=== PATIENT | male | born 1935 | race Caucasian/White ===

== ENCOUNTER 2020-03-03 16:52 | Emergency (ER) | payer MEDICARE, OTHER ==
[2020-03-03 18:51] LABS: HEMOGLOBIN 16.2 gm/dl (14.0-17.5); RED BLOOD COUNT 5.52 M/UL (4.20-5.50); WHITE BLOOD COUNT 5.4 K/UL (4.5-11.0)
[2020-03-03 19:11] LABS: BUN/CREATININE RATIO 28 (0-10)
[2020-03-03] MEDS ORDERED: DECADRON6 MG PO (21:28)
[2020-03-03] MEDS ORDERED: DOXYCYCLINE MO100 MG PO (21:28)
[2020-03-03] MEDS ORDERED: VENTOLIN HFA 66.7 GM INH (21:28)
== END 2020-03-04 00:30 | disposition home or self-care (01) ==
LOC: ER1 16:52
PROVIDERS: Physician Assistant
DX: U07.1 COVID-19 (principal); J12.82 Pneumonia due to coronavirus disease 2019; I48.91 Unspecified atrial fibrillation
CPT/HCPCS: 71045; 80053; 82550; 82553; 83874; 83880; 84484; 85025; 85610; 85730; 93005; 99285; M0239

== ENCOUNTER → 2020-05-24 | Outpatient (CLI) | payer MEDICARE, OTHER ==
[~2020-05-24] MED LIST: DECADRON6 MG PO; DOXYCYCLINE MO100 MG PO; VENTOLIN HFA 66.7 GM INH
== END ==
LOC: ECHO 11:09
DX: R53.83 Other fatigue (principal); I08.3 Combined rheumatic disorders of mitral, aortic and tricuspid valves; I27.20 Pulmonary hypertension, unspecified

== ENCOUNTER → 2020-08-10 | Outpatient (CLI) | payer MEDICARE, OTHER | LOC: EXRD 13:42 | DX: M06.4 Inflammatory polyarthropathy (principal); M18.12 Unilateral primary osteoarthritis of first carpometacarpal joint, left hand; M18.11 Unilateral primary osteoarthritis of first carpometacarpal joint, right hand | CPT/HCPCS: 73130 ==

== ENCOUNTER 2020-10-24 10:13 | Inpatient (IN) | payer MEDICARE, OTHER ==
[~2020-10-24] VITALS: Ht 185.4 cm; Wt 74.0 kg
[~2020-10-24 10:13] MED LIST changes: +DOXYCYCLINE HY100 M2 PO
[2020-10-24 12:16] LABS: HEMOGLOBIN 15.6 gm/dl (14.0-17.5); RED BLOOD COUNT 5.15 M/UL (4.20-5.50); WHITE BLOOD COUNT 10.5 K/UL (4.5-11.0)
[2020-10-24 12:40] LABS: BUN/CREATININE RATIO 24 (0-10)
[2020-10-24] MEDS ORDERED: DEXAMETHASONE4 MG PO (17:27)
[2020-10-24] MEDS ORDERED: PROAIR DIGIHAL90 MCG INH (17:29)
[2020-10-24] MEDS ORDERED: VITAMIN D325 MCG PO (17:30)
[2020-10-24] MEDS ORDERED: METOPROLOL SUCC50 MG PO (17:31)
[2020-10-24] MEDS ORDERED: PRADAXA 150 MG150 MG PO (17:31)
[2020-10-24] MEDS ORDERED: DIGOXIN125 MCG PO (17:32)
[2020-10-24] MEDS ORDERED: CALCIUM 600 +1 EA12 PO (17:33)
[2020-10-24] MEDS ORDERED: VITAMIN D350 MC3 PO (17:34)
[2020-10-25 05:12] LABS: HEMOGLOBIN 13.9 gm/dl (14.0-17.5); RED BLOOD COUNT 4.64 M/UL (4.20-5.50); WHITE BLOOD COUNT 10.5 K/UL (4.5-11.0)
[2020-10-25 05:24] LABS: BUN/CREATININE RATIO 25 (0-10)
--- NOTE | 2020-10-25 10:28 | NUR ---
reported to kerrie max that received call from telemetry that patient pulse ox goes to 70"s with any activity.
--- NOTE | 2020-10-25 12:32 | NUR ---
reported episode to dr. nye received calls from telemetry r/t patients increase heart rate. he acknowledged.
[2020-10-25 13:59] LABS: BORDETELLA PARAPERTUSSIS Not Detected (Not Detectd); BORDETELLA PERTUSSIS Not Detected (Not Detectd); CHLAMYDIA PNEUMONIAE Not Detected (Not Detectd); CORONAVIRUS HKU1 Not Detected (Not Detectd); CORONAVIRUS NL63 Not Detected (Not Detectd); CORONAVIRUS OC43 Not Detected (Not Detectd); CORONOAVIRUS 229E Not Detected (Not Detectd); HUMAN METAPNEUMOVIRUS Not Detected (Not Detectd); HUMAN RHINOVIRUS/ENTEROVIRUS Not Detected (Not Detectd); INFLUENZA A Not Detected (Not Detectd); INFLUENZA B Not Detected (Not Detectd); MYCOPLASMA PNEUMONIAE Not Detected (Not Detectd); PARAINFLUENZA VIRUS 1 Not Detected (Not Detectd); PARAINFLUENZA VIRUS 2 Not Detected (Not Detectd); PARAINFLUENZA VIRUS 3 Not Detected (Not Detectd); PARAINFLUENZA VIRUS 4 Not Detected (Not Detectd); RESPIRATORY SYNCYTIAL VIRUS Not Detected (Not Detectd)
[2020-10-25 15:23] LABS: SARS-CoV-2 NOT DETECTED (Not Detectd)
--- NOTE | 2020-10-25 16:00 | NUR ---
FREQUENT ADJUSTMENT OF PATIENT OXYGENATION PER RT R/T PULSE OX GOES DOWN TO 70'S RANGE. INFORMED DR. BERNAL AND ORDER RECEIVED BY RT. PATIENT WILL BE ON BIPAP/
--- NOTE | 2020-10-25 22:47 | NUR ---
ATTEMPTED TO CALL REPORT X2 TIMES AT THIS POINT. BED IS CLEAN ON BOARD AND WHEN I GET TRANSFERED THROUGH TO THE NURSES STATION NO ANSWER EITHER TIME.
--- NOTE | 2020-10-25 23:08 | NUR ---
attempted report and was informed that recieveing nurse has patient that is very ill at this time and has hospitalist and house in the room with patient. informed the nurse who took the phone call that the nurse can call me back at her earliest time when she is ready. patient is resting in bed with no changes in stable codition at this time. will be awaiting word from pcu nurse when she is able to take report
--- NOTE | 2020-10-26 00:51 | NUR ---
REPORT CALLED TO [facility] ON PCU
[2020-10-26 03:51] LABS: HEMOGLOBIN 14.9 gm/dl (14.0-17.5); RED BLOOD COUNT 5.08 M/UL (4.20-5.50); WHITE BLOOD COUNT 12.6 K/UL (4.5-11.0)
[2020-10-26 04:11] LABS: BUN/CREATININE RATIO 23 (0-10)
--- NOTE | 2020-10-26 16:48 | NUR ---
PATIENT DECLINE. RESPIRATIONS IN THE 50'S TO MAINTAIN PROPER O2 SAT. INFORM MD RESPIRATORY FEELS PATIENT IS GOING TO "GIVE OUT". FAMILY AWARE OF PATIENT POSSIBILITY OF ICU TRANSFER. PATIENT IS A FULL CODE VERIFIED THIS AM PER FAMILY MEMBERS. REPORT GIVEN TO SANDRITA AT APPROXIMATELY [id number]. MD PETERSON IS AWAITING PATIENT FOR INTUBATION. FAMILY IS AWARE.
[2020-10-27 04:55] LABS: HEMOGLOBIN 14.1 gm/dl (14.0-17.5); RED BLOOD COUNT 4.74 M/UL (4.20-5.50)
[2020-10-27 04:56] LABS: WHITE BLOOD COUNT 18.1 K/UL (4.5-11.0)
[2020-10-27 05:14] LABS: BUN/CREATININE RATIO 25 (0-10)
[2020-10-27 15:51] LABS: BODY FLUID SOURCE BRONCHIAL LAVAGE
[2020-10-28 05:31] LABS: HEMOGLOBIN 13.3 gm/dl (14.0-17.5); RED BLOOD COUNT 4.62 M/UL (4.20-5.50)
[2020-10-28 05:52] LABS: BUN/CREATININE RATIO 33 (0-10)
[2020-10-29 04:59] LABS: HEMOGLOBIN 13.1 gm/dl (14.0-17.5); RED BLOOD COUNT 4.68 M/UL (4.20-5.50)
[2020-10-29 05:17] LABS: BUN/CREATININE RATIO 42 (0-10)
[2020-10-29 05:20] LABS: WHITE BLOOD COUNT 13.6 K/UL (4.5-11.0)
[2020-10-30 05:47] LABS: HEMOGLOBIN 12.7 gm/dl (14.0-17.5); RED BLOOD COUNT 4.53 M/UL (4.20-5.50)
[2020-10-30 05:49] LABS: WHITE BLOOD COUNT 17.2 K/UL (4.5-11.0)
[2020-10-30 06:10] LABS: BUN/CREATININE RATIO 57 (0-10)
[2020-10-31 05:26] LABS: HEMOGLOBIN 13.5 gm/dl (14.0-17.5); RED BLOOD COUNT 4.74 M/UL (4.20-5.50); WHITE BLOOD COUNT 13.7 K/UL (4.5-11.0)
[2020-10-31 05:52] LABS: BUN/CREATININE RATIO 38 (0-10)
[2020-11-01 09:06] LABS: WHITE BLOOD COUNT 14.2 K/UL (4.5-11.0)
[2020-11-01 09:08] LABS: RED BLOOD COUNT 5.73 M/UL (4.20-5.50)
[2020-11-01 09:30] LABS: BUN/CREATININE RATIO 30 (0-10)
[2020-11-02 06:35] LABS: HEMOGLOBIN 15.2 gm/dl (14.0-17.5); RED BLOOD COUNT 5.42 M/UL (4.20-5.50); WHITE BLOOD COUNT 13.1 K/UL (4.5-11.0)
[2020-11-02 06:43] LABS: BUN/CREATININE RATIO 34 (0-10)
--- NOTE | 2020-11-02 10:38 | NUR ---
CARDIOLOGY NOTIFIED THAT PT HAD 4 BEAT RUN OF V-TACH AND FEW NON SUSTAINED V TACH EPISODES PER TELEMETRY THIS AM
[2020-11-03 04:42] LABS: HEMOGLOBIN 15.3 gm/dl (14.0-17.5); RED BLOOD COUNT 5.42 M/UL (4.20-5.50)
[2020-11-03 05:06] LABS: BUN/CREATININE RATIO 31 (0-10)
[2020-11-03 05:20] LABS: WHITE BLOOD COUNT 19.5 K/UL (4.5-11.0)
[2020-11-04 07:37] LABS: HEMOGLOBIN 15.7 gm/dl (14.0-17.5); RED BLOOD COUNT 5.57 M/UL (4.20-5.50)
[2020-11-04 07:50] LABS: WHITE BLOOD COUNT 13.5 K/UL (4.5-11.0)
[2020-11-04 08:04] LABS: BUN/CREATININE RATIO 34 (0-10)
[2020-11-04] MEDS ORDERED: LOPRESSOR 25 MG25 MG PO (09:56)
[2020-11-04] MEDS ORDERED: ELIQUIS 5 MG TAB5 MG PO (09:56)
[2020-11-04] MEDS ORDERED: LANTUS INS100 UTS/M1 SQ (09:56)
[2020-11-04] MEDS ORDERED: CEFUROXIME250 MG PO (09:56)
[2020-11-04] MEDS ORDERED: IPRAT-ALBUT 0.5-3 ML NEB (09:56)
== END 2020-11-04 18:27 | DRG 208 ==
LOC: ER1 10:13 → PROG CARE 15:44 → M/S 15:44 → PROG CARE 10-26 00:49 → CCU 10-26 17:12 → M/S 10-31 21:16
PROVIDERS: Internal Medicine; Internal Medicine Pulmonary Disease; Physician Assistant; ADMIT Internal Medicine
PROC: 3E033XZ Introduction of Vasopressor into Peripheral Vein, Percutaneous Approach (ICD-10-PCS; 2020-10-24)
PROC: 5A09457 Assistance with Respiratory Ventilation, 24-96 Consecutive Hours, Continuous Positive Airway Pressure (ICD-10-PCS; principal; 2020-10-26)
PROC: 0BH17EZ Insertion of Endotracheal Airway into Trachea, Via Natural or Artificial Opening (ICD-10-PCS; 2020-10-26)
PROC: 5A1945Z Respiratory Ventilation, 24-96 Consecutive Hours (ICD-10-PCS; 2020-10-26)
PROC: 02HV33Z Insertion of Infusion Device into Superior Vena Cava, Percutaneous Approach (ICD-10-PCS; 2020-10-26)
PROC: B548ZZA Ultrasonography of Superior Vena Cava, Guidance (ICD-10-PCS; 2020-10-26)
PROC: 0B9D8ZX Drainage of Right Middle Lung Lobe, Via Natural or Artificial Opening Endoscopic, Diagnostic (ICD-10-PCS; 2020-10-27)
DX: J15.6 Pneumonia due to other Gram-negative bacteria (principal); A41.50 Gram-negative sepsis, unspecified; G93.41 Metabolic encephalopathy; Z20.822 Contact with and (suspected) exposure to COVID-19; R65.21 Severe sepsis with septic shock; J80 Acute respiratory distress syndrome; R57.8 Other shock; T78.2XXA Anaphylactic shock, unspecified, initial encounter; I48.20 Chronic atrial fibrillation, unspecified; I48.21 Permanent atrial fibrillation; I27.20 Pulmonary hypertension, unspecified; F17.210 Nicotine dependence, cigarettes, uncomplicated; E55.9 Vitamin D deficiency, unspecified; E11.65 Type 2 diabetes mellitus with hyperglycemia; L89.151 Pressure ulcer of sacral region, stage 1; Y83.8 Other surgical procedures as the cause of abnormal reaction of the patient, or of later complication, without mention of misadventure at the time of the procedure; I08.3 Combined rheumatic disorders of mitral, aortic and tricuspid valves; Z79.01 Long term (current) use of anticoagulants; Z79.4 Long term (current) use of insulin; Z90.49 Acquired absence of other specified parts of digestive tract; Z83.3 Family history of diabetes mellitus; Z80.0 Family history of malignant neoplasm of digestive organs; Z86.16 Personal history of COVID-19
CPT/HCPCS: 31500; 36415; 36600; 71045; 71046; 71250; 80048; 80053; 80162; 80202; 82150; 82550; 82553; 82803; 82945; 82962; 83036; 83605; 83615; 83735; 83874; 83880; 83986; 84100; 84157; 84484; 85007; 85025; 85027; 86140; 87015; 87040; 87070; 87116; 87205; 87206; 87252; 87633; 89051; 92526; 92610; 93005; 94002; 94003; 94640; 94660; 94664; 94760; 97110; 97110-GP-CQ; 97161; 97530; 97530-GP-CQ; 99285; C9113; J0330; J0456; J0692; J0696; J1160; J1940; J2060; J2370; J2704; J2920; J2930; J3370; J3486; J7030; J7050; J7070; Q0177; Q9967; U0002

== ENCOUNTER → 2021-01-04 | Outpatient (CLI) | payer MEDICARE, OTHER ==
[~2021-01-04] MED LIST changes: +CALCIUM 600 +1 EA12 PO; +CEFUROXIME250 MG PO; +DEXAMETHASONE4 MG PO; +DIGOXIN125 MCG PO; +ELIQUIS 5 MG TAB5 MG PO; +IPRAT-ALBUT 0.5-3 ML NEB; +LANTUS INS100 UTS/M1 SQ; +LOPRESSOR 25 MG25 MG PO; +METOPROLOL SUCC50 MG PO; +PRADAXA 150 MG150 MG PO; +PROAIR DIGIHAL90 MCG INH; +VITAMIN D325 MCG PO; +VITAMIN D350 MC3 PO
== END ==
LOC: HEART 5 15:30
DX: R53.83 Other fatigue (principal); R00.2 Palpitations; R06.02 Shortness of breath; I37.1 Nonrheumatic pulmonary valve insufficiency; I27.20 Pulmonary hypertension, unspecified
CPT/HCPCS: 93306

== ENCOUNTER → 2021-04-21 | Outpatient (CLI) | payer MEDICARE, OTHER | LOC: EXRD 10:08 | DX: R06.02 Shortness of breath (principal); U09.9 Post COVID-19 condition, unspecified | CPT/HCPCS: 71046; 94060; 94729 ==

== ENCOUNTER → 2021-05-12 | Outpatient (CLI) | payer MEDICARE, OTHER | LOC: KOH-I 05-08 13:00 | DX: J84.10 Pulmonary fibrosis, unspecified (principal); Z87.891 Personal history of nicotine dependence | CPT/HCPCS: 71250 ==